=== PATIENT | female | born 1980 | race Caucasian/White ===

== ENCOUNTER 2019-08-23 17:39 | Emergency (ER) | payer OTHER, SELFPAY ==
[2019-08-23 17:40] VITALS: BP 97/60; PULSE 100; RESP 14; TEMP 36.4; O2SAT 94; BMI 28.7
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
[2019-08-23] MEDS: 0.9% Normal Saline 1,000 ML 999 ML IV (17:51)
[2019-08-23] MEDS: Ondansetron 4 MG/2 ML Vial IV (17:54)
[2019-08-23] MEDS: fentaNYL 100 MCG/2 ML Ampul 50 MCG IV (17:54)
[2019-08-23 17:55] VITALS: BP 87/66; PULSE 102; RESP 19; O2SAT 96
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
[2019-08-23 18:08] LABS: Anion Gap 13 (5-15); BUN 6 mg/dL (7-18); BUN/Creat Ratio 8.6 RATIO (10-20); Calcium,Total 7.7 mg/dL (8.5-10.1); Chloride 107 mmol/L (98-107); Creatinine, Serum 0.69 mg/dL (0.55-1.02); EST Glomerular Filtration Rate 101 mL/min (>60); Est Glom Filt Rate - Afr Amer 122 mL/min (>60); Estimated Creatinine Clearance 112.61 ml/min; Glucose 143 mg/dL (74-106); Potassium 3.6 mmol/L (3.5-5.1); Sodium Level 140 mmol/L (136-145)
[2019-08-23] MEDS: Rocuronium Bromide 50 MG/5 ML Vial 64 MG IV (18:13)
[2019-08-23 18:16] LABS: Internal QC Validated? YES +Cl - CLEAR BKGD; Pregnancy, Serum, hCG Quali. NEGATIVE Negative
[2019-08-23 18:20] LABS: Absolute Lymphocyte Count 4.39 X10^3/uL (0.83-4.51); Absolute Neutrophil Count 1.9 X10^3/uL (2.0-7.7); Basophil# 0.07 X10^3/uL; Eosinophil# 0.17 X10^3/uL; Eosinophils% 2.5 % (0-5); Hemoglobin 12.7 g/dL (12.0-15.0); Lymphocyte # 4.39 X10^3/ul (4.0); Lymphocyte % 65.1 % (19-41); Mean Corp Hgb Conc 32.6 g/dL (32-36); Mean Corpuscular Hgb 32.9 pg (27.0-32.0); Mean Platelet Vol. 9.3 fl (6.2-12.0); NRBC Flagged by Analyzer 0 % (0-5); Neutrophil # 1.87 X10^3/uL (2.7-7.7); Neutrophil % 27.8 % (47-70); POSITIVE MORPHOLOGY YES; Platelet Count 219 K/mm3 (150-450); RBC Distribution Width CV 15.1 % (11.6-14.6); RBC Distribution Width SD 56.9 fl (35.1-43.9); Red Blood Count 3.86 M/mm3 (4.2-5.4); White Blood Count 6.7 K/mm3 (4.4-11.0)
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
[2019-08-23 18:34] LABS: Differential Indicated SCAN CRITERIA MET
[2019-08-23 18:52] VITALS: BP 106/74; PULSE 90; RESP 14; O2SAT 100
[2019-08-23 18:54] LABS: Differential Comment SCANNED
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
--- NOTE | 2019-08-23 19:21 | ED.RN ---
[facility] call center reassured me that if Dr. Garcia gave report to [facility] and to [facility] several times, no nurse to nurse report was needed.
--- NOTE | 2019-08-23 20:22 | NURSING ---
WILLIAN DANIELLE SISTER [phone]
== END 2019-08-23 18:53 | disposition short-term general hospital (02) ==
LOC: ED 18:09
PROVIDERS: Emergency Provider Emergency Medicine
DX: S72.351A Displaced comminuted fracture of shaft of right femur, initial encounter for closed fracture (principal); S22.42XA Multiple fractures of ribs, left side, initial encounter for closed fracture; V43.54XA Car driver injured in collision with van in traffic accident, initial encounter; Y93.9 Activity, unspecified; Y92.9 Unspecified place or not applicable; Y99.9 Unspecified external cause status; I95.9 Hypotension, unspecified; F10.129 Alcohol abuse with intoxication, unspecified; Y90.8 Blood alcohol level of 240 mg/100 ml or more; Z72.0 Tobacco use
CPT/HCPCS: 27502; 31500; 36430; 51702; 70450; 71045; 71260; 72125; 72170; 73551; 74177; 80048; 80320; 84703; 85025; 86850; 86900; 86901; 86920; 86922; 93005; 96361; 96374; 96375; 99251; 99285; J7030; J7040; P9016; Q9967; A4216; G0463; G0480; J2405